=== PATIENT | female | born 1980 | race Caucasian/White ===

== ENCOUNTER → 2020-01-18 | Outpatient (CLI) | payer OTHER | END | disposition home or self-care (01) | LOC: CFH 13:08 | PROVIDERS: ATTEND Nurse Practitioner Family | DX: N63.23 Unspecified lump in the left breast, lower outer quadrant (principal) | CPT/HCPCS: 76642; 77066; G0279 ==

== ENCOUNTER 2020-01-27 11:45 | Outpatient (CLI) | payer OTHER ==
[2020-01-27] MEDS ORDERED: SODIUM BICARBONATE 4.2%, 5ML ONE (12:30)
[2020-01-27] MEDS ORDERED: LIDOCAINE 1%-EPI 1:100K, 20ML ONE (12:30)
[2020-01-27] MEDS ORDERED: LIDOCAINE 1%, 20ML ONE (12:30)
== END 2020-01-27 23:59 | disposition home or self-care (01) ==
LOC: CFH 11:45
PROVIDERS: ATTEND Nurse Practitioner Family
DX: N63.23 Unspecified lump in the left breast, lower outer quadrant (principal); C50.512 Malignant neoplasm of lower-outer quadrant of left female breast; C50.812 Malignant neoplasm of overlapping sites of left female breast; Z17.1 Estrogen receptor negative status [ER-]
CPT/HCPCS: 19083; 19084; 77065; 88305; 88360; J3490; 19285; 19286

== ENCOUNTER 2020-02-02 08:13 | Outpatient (CLI) | payer OTHER ==
[2020-02-02] MEDS ORDERED: GADOTERATE 10 MMOL/20 ML VIAL ONE (09:02)
[2020-02-14] MEDS ORDERED: None at this time (15:26)
== END 2020-02-02 23:59 | disposition home or self-care (01) ==
LOC: CFH 08:13
PROVIDERS: ATTEND Nurse Practitioner Family
DX: C50.412 Malignant neoplasm of upper-outer quadrant of left female breast (principal); N60.01 Solitary cyst of right breast; N60.02 Solitary cyst of left breast
CPT/HCPCS: 77049; A9575; C8908; C8937

== ENCOUNTER 2020-02-04 11:34 | Outpatient (CLI) | payer OTHER ==
[2020-02-04] MEDS ORDERED: OMNIPAQUE 350 MG/ML, 100ML BOTTLE ONE (12:23)
[2020-02-14] MEDS ORDERED: None at this time (15:26)
== END 2020-02-04 23:59 | disposition home or self-care (01) ==
LOC: RAD 11:34
PROVIDERS: ATTEND Surgery
DX: C50.812 Malignant neoplasm of overlapping sites of left female breast (principal); K76.89 Other specified diseases of liver; N83.202 Unspecified ovarian cyst, left side; D25.9 Leiomyoma of uterus, unspecified
CPT/HCPCS: 71260; 74177; 78306; A9503; Q9967

== ENCOUNTER → 2020-02-09 | Outpatient (CLI) | payer OTHER | END | disposition home or self-care (01) | LOC: CVU 08:17 | PROVIDERS: ATTEND Internal Medicine Hematology & Oncology | DX: C50.812 Malignant neoplasm of overlapping sites of left female breast (principal); I08.8 Other rheumatic multiple valve diseases; Z85.841 Personal history of malignant neoplasm of brain | CPT/HCPCS: 93306; 93356 ==

== ENCOUNTER → 2020-02-09 | Outpatient (CLI) | payer OTHER ==
[2020-02-09 08:50] LABS: BASOPHILS # (AUTO) 0.04 x10^3/uL (0-0.1); BASOPHILS % (AUTO) 1 % (0-1); EOSINOPHILS % (AUTO) 2 % (1-7); LYMPHOCYTES # (AUTO) 1.58 x10^3/uL (1-3.4); LYMPHOCYTES % (AUTO) 29 % (22-44); MD NO; MEAN CORPUSCULAR HEMOGLOBIN 23.3 pg (27.0-34.8); MEAN CORPUSCULAR HGB CONC 32.4 g/dL (32.4-35.8); MEAN PLATELET VOLUME 8.6 fL (7.4-10.4); MONOCYTES # (AUTO) 0.43 x10^3/uL (0.2-0.8); MONOCYTES % (AUTO) 8 % (2-9); NEUTROPHILS # (AUTO) 3.29 x10^3/uL (1.8-6.8); NEUTROPHILS % (AUTO) 61 % (42-75); PLATELET COUNT 281 x10^3/uL (130-400); RED BLOOD COUNT 4.97 x10^6/uL (3.82-5.3); RED CELL DISTRIBUTION WIDTH 16.6 % (9.6-15.2)
[2020-02-09 08:53] LABS: ALBUMIN 3.7 g/dL (3.4-5.0); ANION GAP 8 mmol/L (5-15); CALCIUM 9.4 mg/dL (8.5-10.1); CHLORIDE 108 mmol/L (98-107)
[2020-02-09 09:00] LABS: ALANINE AMINOTRANSFERASE 19 U/L (12-78); ALKALINE PHOSPHATASE 58 U/L (45-117); BILIRUBIN,TOTAL 0.4 mg/dL (0.2-1.0); CREATININE 0.96 mg/dL (0.55-1.02)
== END | disposition home or self-care (01) ==
LOC: LAB 08:15
PROVIDERS: ATTEND Internal Medicine Hematology & Oncology
DX: C50.812 Malignant neoplasm of overlapping sites of left female breast (principal)
CPT/HCPCS: 36415; 80053; 82306; 83735; 85025; 86300

== ENCOUNTER → 2020-02-14 | Outpatient (CLI) | payer OTHER ==
[~2020-02-14] MED LIST: None at this time
[2020-02-14 10:28] LABS: CALCIUM 8.7 mg/dL (8.5-10.1); CHLORIDE 108 mmol/L (98-107)
[2020-02-14 10:33] LABS: ALANINE AMINOTRANSFERASE 18 U/L (12-78); ALBUMIN 3.6 g/dL (3.4-5.0); ALKALINE PHOSPHATASE 61 U/L (45-117); BILIRUBIN,TOTAL 0.4 mg/dL (0.2-1.0); CREATININE 0.87 mg/dL (0.55-1.02); TOTAL PROTEIN 7.7 g/dL (6.4-8.2)
[2020-02-14 11:15] LABS: ANION GAP 8 mmol/L (5-15)
== END | disposition home or self-care (01) ==
LOC: LAB 10:03
PROVIDERS: ATTEND Internal Medicine Hematology & Oncology
DX: C50.812 Malignant neoplasm of overlapping sites of left female breast (principal); Z79.899 Other long term (current) drug therapy
CPT/HCPCS: 36415; 80053; 83735

== ENCOUNTER 2020-02-17 05:59 | Day surgery (SDC) | payer OTHER ==
[~2020-02-17] VITALS: Ht 167.6 cm; Wt 91.9 kg
[2020-02-17] MEDS ORDERED: HEPARIN 1,000 UNITS/ML, 10ML ONE (06:31)
[2020-02-17] MEDS ORDERED: BUPIVACAINE/PF 0.5% ONE (06:31)
[2020-02-17] MEDS ORDERED: CHLORHEXIDINE 15 ML UDC MM STA (06:34)
[2020-02-17] MEDS ORDERED: LACTATED RINGERS 1,000 ML IV SCH (06:35)
[2020-02-17] MEDS ORDERED: LABETALOL 5MG/ML, 20ML IV PRN (07:00)
[2020-02-17] MEDS ORDERED: hydrALAzine 20 MG/ML, 1ML IV PRN (07:00)
[2020-02-17] MEDS ORDERED: OXYcodone 5 MG/5 ML ORAL.SOL UDC PO PRN (07:00)
[2020-02-17] MEDS ORDERED: HYDROmorphone 1 MG/ML, 1ML INJ IVPush PRN (07:00)
[2020-02-17] MEDS ORDERED: ONDANSETRON 2MG/ML, 2ML IVPush PRN (07:00)
[2020-02-17] MEDS ORDERED: MEPERIDINE/PF 25MG/0.5ML IVPush PRN (07:00)
[2020-02-17] MEDS ORDERED: PROMETHAZINE 25 MG/ML, 1ML IVPush PRN (07:00)
[2020-02-17] MEDS ORDERED: ACETAMINOPHEN 500 MG TABLET PO ONE (07:00)
[2020-02-17] MEDS ORDERED: FENTANYL PF 100 MCG/2ML IV PRN (07:00)
[2020-02-17] MEDS ORDERED: EPHEDRINE 50 MG/ML, 1ML IVPush PRN (07:00)
[2020-02-17 07:13] LABS: HCG UR SG 1.023 (1.003-1.030)
[2020-02-17] MEDS ORDERED: MIDAZOLAM 1 MG/ML, 2ML ONE (07:42)
[2020-02-17] MEDS ORDERED: FENTANYL PF 100 MCG/2ML ONE (07:42)
[2020-02-17] MEDS ORDERED: DEXAMETHASONE 4 MG/ML, 1ML ONE (07:47)
[2020-02-17] MEDS ORDERED: SUCCINYLCHOLINE 20 MG/ML, 10ML ONE (07:47)
[2020-02-17] MEDS ORDERED: ONDANSETRON 2MG/ML, 2ML ONE (07:47)
[2020-02-17] MEDS ORDERED: CEFAZOLIN 1,000 MG ONE (07:47)
[2020-02-17] MEDS ORDERED: PROPOFOL 10 MG/ML, 20ML ONE (07:47)
[2020-02-17] MEDS ORDERED: LIDOCAINE-MPF 2% ,5ML ONE (08:03)
[2020-02-17] MEDS ORDERED: KETOROLAC 30 MG/1 ML ONE (08:03)
[2020-02-17] MEDS ORDERED: EPINEPHRINE 1 MG/ML, 1ML INFIL ONE (08:12)
[2020-02-18] MEDS ORDERED: ONDA4TAB7 PO (11:33)
[2020-02-18] MEDS ORDERED: PROC5TAB40 PO (11:33)
== END 2020-02-17 19:55 | disposition home or self-care (01) ==
LOC: OUT 05:59
PROVIDERS: ATTEND Surgery
DX: C50.812 Malignant neoplasm of overlapping sites of left female breast (principal); Z11.59 Encounter for screening for other viral diseases; Z17.1 Estrogen receptor negative status [ER-]; Z85.841 Personal history of malignant neoplasm of brain; Z80.3 Family history of malignant neoplasm of breast
CPT/HCPCS: 36561; 71045; 77001; 81025; C1788; J0171; J0330; J0690; J1100; J1644; J1885; J2250; J2405; J2704; J3010; J7120; U0001

== ENCOUNTER → 2020-05-26 | Outpatient (CLI) | payer OTHER ==
[~2020-05-26] MED LIST changes: +GADOTERATE 10 MMOL/20 ML VIAL ONE; +ONDA4TAB7 PO; +PROC5TAB40 PO
== END | disposition home or self-care (01) ==
LOC: CFH 08:00
PROVIDERS: ATTEND Surgery
DX: C50.812 Malignant neoplasm of overlapping sites of left female breast (principal)
CPT/HCPCS: 77049; A9575; C8908

== ENCOUNTER → 2020-06-28 | Outpatient (CLI) | payer OTHER ==
[~2020-06-28] MED LIST changes: -GADOTERATE 10 MMOL/20 ML VIAL ONE
[2020-06-28 13:01] LABS: BASOPHILS % (AUTO) 1 % (0-1); EOSINOPHILS % (AUTO) 1 % (1-7); LYMPHOCYTES % (AUTO) 33 % (22-44); MEAN CORPUSCULAR HEMOGLOBIN 29.7 pg (27.0-34.8); MEAN CORPUSCULAR HGB CONC 32.4 g/dL (32.4-35.8); MEAN PLATELET VOLUME 7.2 fL (7.4-10.4); MONOCYTES % (AUTO) 10 % (2-9); NEUTROPHILS % (AUTO) 55 % (42-75); PLATELET COUNT 262 x10^3/uL (130-400); RED BLOOD COUNT 3.57 x10^6/uL (3.82-5.3); RED CELL DISTRIBUTION WIDTH 17.2 % (9.6-15.2)
[2020-06-28 13:06] LABS: MD NO
== END | disposition home or self-care (01) ==
LOC: LAB 12:16
PROVIDERS: ATTEND Surgery
DX: C50.812 Malignant neoplasm of overlapping sites of left female breast (principal)
CPT/HCPCS: 36415; 85025

== ENCOUNTER 2020-06-29 09:46 | Day surgery (SDC) | payer OTHER ==
[~2020-06-29] VITALS: Ht 167.6 cm; Wt 84.5 kg
[~2020-06-29 09:46] MED LIST changes: +BACITRACIN 50,000 UNIT ONE; +BUPIVACAINE/PF 0.5% ONE; +CEFAZOLIN 1,000 MG ONE; +EPINEPHRINE 1 MG/ML, 1ML ONE; +GENTAMICIN 80 MG/2 ML ONE; +ISOSULFAN BLUE 10 MG/ML, 5ML IV ONE
[2020-06-29 11:29] LABS: HCG UR SG 1.019 (1.003-1.030)
[2020-06-29] MEDS ORDERED: LACTATED RINGERS 1,000 ML IV PRN (11:30)
[2020-06-29] MEDS ORDERED: CHLORHEXIDINE 15 ML UDC MM STA (11:30)
[2020-06-29] MEDS ORDERED: CHLORHEXIDINE 15 ML UDC ONE (11:36)
[2020-06-29] MEDS ORDERED: FENTANYL PF 250 MCG/5ML ONE (14:56)
[2020-06-29] MEDS ORDERED: MIDAZOLAM 1 MG/ML, 2ML ONE (14:56)
[2020-06-29] MEDS ORDERED: ACETAMINOPHEN 500 MG TABLET PO ONE (15:00)
[2020-06-29] MEDS ORDERED: PROPOFOL 10 MG/ML, 20ML ONE (15:09)
[2020-06-29] MEDS ORDERED: ONDANSETRON 2MG/ML, 2ML ONE ×2 (15:09→17:56)
[2020-06-29] MEDS ORDERED: CEFAZOLIN 1,000 MG ONE (15:09)
[2020-06-29] MEDS ORDERED: ROCURONIUM 10 MG/ML,10ML ONE (15:09)
[2020-06-29] MEDS ORDERED: DEXAMETHASONE 4 MG/ML, 1ML ONE (15:09)
[2020-06-29] MEDS ORDERED: GLYCOPYRROLATE 0.2MG/1ML, 5ML ONE (15:09)
[2020-06-29] MEDS ORDERED: LIDOCAINE PF 2%, 5ML ONE (15:09)
[2020-06-29] MEDS ORDERED: NEOSTIGMINE 1 MG/ML, 10ML ONE (15:09)
[2020-06-29] MEDS ORDERED: FENTANYL PF 100 MCG/2ML IV PRN (16:00)
[2020-06-29] MEDS ORDERED: PROMETHAZINE 25 MG/ML, 1ML IVPush PRN (16:00)
[2020-06-29] MEDS ORDERED: DIAZEPAM 5 MG/ML, 2ML IVPush PRN (16:00)
[2020-06-29] MEDS ORDERED: ONDANSETRON 2MG/ML, 2ML IVPush PRN ×2 (16:00→19:00)
[2020-06-29] MEDS ORDERED: DIPHENHYDRAMINE 50 MG/ML, 1ML IVPush PRN (16:00)
[2020-06-29] MEDS ORDERED: OXYcodone 5 MG/5 ML ORAL.SOL UDC PO PRN (16:00)
[2020-06-29] MEDS ORDERED: HYDROmorphone 1 MG/ML, 1ML INJ IVPush PRN (16:00)
[2020-06-29] MEDS ORDERED: MEPERIDINE/PF 25MG/0.5ML IVPush PRN (16:00)
[2020-06-29] MEDS ORDERED: MORPHINE SULFATE 4 MG/ML, 1ML IVPush PRN (19:00)
[2020-06-29] MEDS ORDERED: LACTATED RINGERS 1,000 ML IV SCH (19:00)
[2020-06-29] MEDS ORDERED: HYDROcodone/APAP 5/325 TABLET PO PRN (19:00)
[2020-06-29 20:28] VITALS: BP 123/83
== END 2020-06-29 20:50 | disposition home or self-care (01) ==
LOC: OR 09:46 → 4NE 18:17 → OUT 20:50
PROVIDERS: ATTEND Surgery
DX: C50.412 Malignant neoplasm of upper-outer quadrant of left female breast (principal); Z20.828 Contact with and (suspected) exposure to other viral communicable diseases; N65.1 Disproportion of reconstructed breast; Z17.1 Estrogen receptor negative status [ER-]; Z79.899 Other long term (current) drug therapy; Z85.841 Personal history of malignant neoplasm of brain; Z98.890 Other specified postprocedural states; Z80.3 Family history of malignant neoplasm of breast
CPT/HCPCS: 15570; 19281; 19301; 19316; 19318; 36415; 38525; 38792; 76098; 81025; 87635; 88305; 88307; 88329; 88333; 93005; A9541; C1729; J0171; J0690; J1100; J1580; J2250; J2405; J2704; J2710; J3010; J7120; G0378

== ENCOUNTER → 2020-07-21 | Outpatient (CLI) | payer OTHER ==
[~2020-07-21] MED LIST changes: -BACITRACIN 50,000 UNIT ONE; -BUPIVACAINE/PF 0.5% ONE; -CEFAZOLIN 1,000 MG ONE; -EPINEPHRINE 1 MG/ML, 1ML ONE; -GENTAMICIN 80 MG/2 ML ONE; -ISOSULFAN BLUE 10 MG/ML, 5ML IV ONE
== END | disposition home or self-care (01) ==
LOC: ROC 11:01
PROVIDERS: ATTEND Radiology Radiation Oncology
DX: C50.412 Malignant neoplasm of upper-outer quadrant of left female breast (principal); C50.812 Malignant neoplasm of overlapping sites of left female breast; Z17.1 Estrogen receptor negative status [ER-]; Z79.899 Other long term (current) drug therapy
CPT/HCPCS: 99214; G0463

== ENCOUNTER → 2020-09-27 | Outpatient (CLI) | payer OTHER | END | disposition home or self-care (01) | LOC: ROC 09:03 | PROVIDERS: ATTEND Radiology Radiation Oncology | DX: C50.412 Malignant neoplasm of upper-outer quadrant of left female breast (principal); C50.812 Malignant neoplasm of overlapping sites of left female breast; Z17.1 Estrogen receptor negative status [ER-]; Z79.899 Other long term (current) drug therapy; Z85.841 Personal history of malignant neoplasm of brain | CPT/HCPCS: 99213; G0463 ==

== ENCOUNTER → 2020-12-22 | Outpatient (CLI) | payer OTHER | END | disposition home or self-care (01) | LOC: CVU 07:41 | PROVIDERS: ATTEND Internal Medicine Hematology & Oncology | DX: I08.8 Other rheumatic multiple valve diseases (principal); C50.812 Malignant neoplasm of overlapping sites of left female breast; Z85.841 Personal history of malignant neoplasm of brain | CPT/HCPCS: 93306; 93356 ==

== ENCOUNTER → 2021-01-30 | Outpatient (CLI) | payer OTHER | END | disposition home or self-care (01) | LOC: CFH 13:47 | PROVIDERS: ATTEND Radiology Radiation Oncology | DX: Z12.31 Encounter for screening mammogram for malignant neoplasm of breast (principal); C50.412 Malignant neoplasm of upper-outer quadrant of left female breast | CPT/HCPCS: 77063; 77067 ==